=== PATIENT | female | born 1960 | race Caucasian/White ===

== ENCOUNTER → 2017-04-21 | Outpatient (CLI) | payer MEDICARE ==
[~2017-04-21] MED LIST: IOHEXOL 300 MG/ML 75 ML VIAL. IV ONE
--- NOTE | 2017-04-21 13:33 | RAD ---
CT angiography chest 04/21/2017 at 1029 hours Indication: Enlarged aorta Comparison: CT chest/abdomen/pelvis 04/19/2010 Technique: Multiple axial CT images of the chest were obtained after the administration of intravenous contrast. Coronal and sagittal reformats are provided. 75 mL is Omnipaque 300 administered intravenously. Findings: Vascular findings: The thoracic aorta at the sinus of Valsalva measures 3.5 cm. The thoracic aorta at the sinotubular junction measures 3.2 cm. Fastening aorta at the level of the proximal arch measures 4.0 cm. The descending aorta at the level of the main pulmonary artery measures 2.6 cm. Normal 3 vessel branching pattern of the brachiocephalic vessels. There is atherosclerotic calcification at the origin of the left subclavian which results in mild stenosis. Nonvascular findings: Thyroid gland is normal. Heart is normal in size. No pericardial effusions. No enlarged lymph nodes in the axillary, mediastinal or hilar regions. Lungs are clear. No suspicious pulmonary nodules. No infiltrates. No pneumothorax. Visualized upper abdomen is normal. The suspicious osseous lesions are identified. 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 Findings are stable dating back to 04/19/2010. PQRS Compliance Statement: One or more of the following individualized dose reduction techniques were utilized for this examination: 1. Automated exposure control 2. Adjustment of the mA and/or kV according to patient size 3. Use of iterative reconstruction technique
== END | disposition home or self-care (01) ==
LOC: CT 09:23
PROVIDERS: ATTEND Family Medicine
DX: I15.1 Hypertension secondary to other renal disorders (principal); I16.0 Hypertensive urgency; I79.0 Aneurysm of aorta in diseases classified elsewhere; F41.9 Anxiety disorder, unspecified; F17.200 Nicotine dependence, unspecified, uncomplicated; I70.0 Atherosclerosis of aorta; I77.819 Aortic ectasia, unspecified site; I87.1 Compression of vein; R12 Heartburn; R05 Cough
CPT/HCPCS: 71275; Q9967

== ENCOUNTER 2017-05-09 22:53 | Inpatient (IN) | payer MEDICARE ==
[~2017-05-09] VITALS: Ht 165.1 cm; Wt 86.2 kg
[2017-05-10] VITALS (9 sets, daily range): BP systolic 104–183; BP diastolic 65–117
[2017-05-10] MEDS ORDERED: MVI, ADULT NO.4 WITH VIT K 10 ML, FOLIC ACID 1 MG, THIAMINE 100 MG in IV NORMAL SALINE ... IV SCH ×4 (00:45)
[2017-05-10 01:16] LABS: BASO # 0.1 x10^3/uL (0.0-0.2); BASO % 1 % (0-3); EOS # 0.1 x10^3/uL (0.0-0.7); EOS % 1 % (0-3); HEMATOCRIT 46.1 % (36.0-47.0); HEMOGLOBIN 15.8 g/dL (12.0-15.5); LYMPH # 3.4 x10^3/uL (1.0-4.8); LYMPH % 55 % (24-48); MEAN CORPUSCULAR HEMOGLOBIN 35 pg (25-35); MEAN CORPUSCULAR HGB CONC 34 g/dL (31-37); MEAN CORPUSCULAR VOLUME 102 fL (79-100); MONO # 0.6 x10^3/uL (0.0-1.1); MONO % 9 % (0-9); NEUT # 2.2 x10^3uL (1.8-7.7); NEUT % 34 % (31-73); PLATELET COUNT 143 x10^3/uL (140-400); RED CELL DISTRIBUTION WIDTH 14.1 % (11.5-14.5); WHITE BLOOD COUNT 6.3 x10^3/uL (4.0-11.0)
[2017-05-10] MEDS ORDERED: IV NORMAL SALINE 1,000ML 1,000 ML ONE (01:27)
[2017-05-10] MEDS ORDERED: THIAMINE 200 MG/2 ML VIAL. IV ONE (01:27)
[2017-05-10] MEDS ORDERED: FOLIC ACID 5 MG/ML SYRINGE for ER IV ONE (01:28)
[2017-05-10] MEDS ORDERED: MVI, ADULT NO.4 WITH VIT K 10 ML VIAL IV ONE (01:28)
[2017-05-10 01:36] LABS: BARBITURATES NEG (NEG); BENZODIAZEPINES NEG (NEG); CANNABINOIDS NEG (NEG); COCAINE NEG (NEG); METHADONE NEG (NEG); OPIATES NEG (NEG); PHENCYCLIDINE NEG (NEG)
[2017-05-10 01:45] LABS: BACTERIA,URINE 0 /HPF (0-FEW); BILIRUBIN,URINE NEG (NEG); CLARITY,URINE CLEAR; COLOR,URINE YELLOW; GLUCOSE,URINE NEG (NEG); NITRITE,URINE NEG (NEG); RBC,URINE 0 /HPF (0-2); SQUAMOUS EPITHELIAL CELL,UR FEW /LPF; UROBILINOGEN,URINE 0.2 mg/dL (0.2 mg/dL); WBC,URINE OCC /HPF (0-4)
[2017-05-10 01:52] LABS: AMPHETAMINE/METHAMPHETAMINE NEG (NEG)
[2017-05-10 02:21] LABS: ALBUMIN 3.8 g/dL (3.4-5.0); ALBUMIN/GLOBULIN RATIO 0.8 (1.0-1.7); CALCIUM 8.7 mg/dL (8.5-10.1); CREATININE 0.7 mg/dL (0.6-1.0); GFR 85.9; MAGNESIUM 1.9 mg/dL (1.8-2.4); POTASSIUM 3.5 mmol/L (3.5-5.1); TOTAL BILIRUBIN 1.4 mg/dL (0.2-1.0); TOTAL PROTEIN 8.5 g/dL (6.4-8.2)
[2017-05-10] MEDS ORDERED: ONDANSETRON PF 4 MG/2 ML VIAL. IV PRN (02:30)
[2017-05-10] MEDS ORDERED: HALOPERIDOL LACT 5 MG/ML VIAL. IM PRN (02:30)
[2017-05-10] MEDS ORDERED: diphenhydrAMINE 50 MG/ML VIAL IVP PRN (02:30)
[2017-05-10] MEDS ORDERED: LORazepam 2 MG/ML VIAL IV PRN (02:30)
[2017-05-10] MEDS: cloNIDine HCL 0.1 MG TABLET PO PRN ×4 (02:38→23:55)
--- NOTE | 2017-05-10 02:58 | PHYS DOC ---
Adult General Chief Complaint Chief Complaint: WITHDRAWL HPI HPI Patient is a 56 year old female who presents with complaint of high blood pressure. Patient states that she has history of daily alcohol use. Patient states that she drinks at least 1 pint of whiskey or 6 beers every day and has done so for several years. The patient follows with Dr. Parker for primary care. Patient states that she has not been feeling well over the past couple days. Patient states that she took her blood pressure earlier today and found to be "high." Patient called her primary doctor and informed him of how she was feeling. She also stated that she was wanting to stop drinking. She states he instructed her to come to the emergency department for evaluation as patient would likely need to be admitted to the hospital for treatment. Patient's blood pressure was found to be 160/110 here in the emergency department. Patient denies headaches but states that she has been having chest pains off and on as well as sore throat. Patient also states that she has an obsessive compulsive syndrome that is causing her to pick at wounds on her body. Patient states that there are 2 wounds on her left shoulder that she has been picking at and currently they will not heal. Review of Systems Review of Systems Constitutional: Denies fever or chills [] Eyes: Denies change in visual acuity, redness, or eye pain [] HENT: Denies nasal congestion or sore throat [] Respiratory: Denies cough or shortness of breath [] Cardiovascular: Intermittent chest pain [] GI: Denies abdominal pain, nausea, vomiting, bloody stools or diarrhea [] : Denies dysuria or hematuria [] Musculoskeletal: Denies back pain or joint pain [] Integument: Wounds on left shoulder [] Neurologic: Denies headache, focal weakness or sensory changes [] Current Medications Current Medications Current Medications Medications (Trade) Dose Ordered Sig/Jacques Start Time Stop Time Status Last Admin Dose Admin Folic Acid 5 mg STK-MED ONCE 05/10/17 01:28 05/10/17 01:29 DC Multivitamins/ Minerals (Infuvite Adult) 10 ml STK-MED ONCE 05/10/17 01:28 05/10/17 01:29 DC Multivitamins/ Minerals 10 ml/ Folic Acid 1 mg/ Thiamine HCl 100 mg/Sodium Chloride 1,011.2 ml @ 1,000 mls/ hr Q1H 05/10/17 00:45 05/10/17 01:39 DC 05/10/17 01:38 1,000 MLS/HR Sodium Chloride 1,000 ml @ As Directed STK-MED ONCE 05/10/17 01:27 05/10/17 01:28 DC Thiamine HCl 200 mg STK-MED ONCE 05/10/17 01:27 05/10/17 01:28 DC Allergies Allergies Allergies Coded Allergies Type Severity Reaction Last Updated Verified sulfur Allergy Severe 04/21/17 Yes Physical Exam Physical Exam Constitutional: Alert, afebrile, alcoholic halitosis present, anxious. [] HENT: Normocephalic, atraumatic, bilateral external ears normal, oropharynx moist, no oral exudates, nose normal. [] Eyes: PERRLA, EOMI, conjunctiva normal, no discharge. [] Neck: Normal range of motion, no tenderness, supple, no stridor. [] Cardiovascular:Heart rate regular rhythm, no murmur [] Lungs & Thorax: Bilateral breath sounds clear to auscultation [] Abdomen: Bowel sounds normal, soft, no tenderness, no masses, no pulsatile masses. [] Skin: Warm, dry, there are 2 wounds on the left shoulder both measuring approximately 1.5 cm with active oozing of clear exudate, no surrounding erythema. [] Back: No tenderness, no CVA tenderness. [] Extremities: No tenderness, no cyanosis, no clubbing, ROM intact, no edema. [] Neurologic: Alert and oriented X 3, normal motor function, normal sensory function, no focal deficits noted. [] Current Patient Data Vital Signs Vital Signs Date Time Temp Pulse Resp B/P (MAP) Pulse Ox O2 Delivery O2 Flow Rate FiO2 05/10/17 02:38 173/118 05/09/17 23:27 98.0 92 20 94 Room Air Lab Results Laboratory Tests Test 05/10/17 00:48 05/10/17 01:35 White Blood Count 6.3 x10^3/uL (4.0-11.0) Red Blood Count 4.50 x10^6/uL (3.50-5.40) Hemoglobin 15.8 g/dL (12.0-15.5) H Hematocrit 46.1 % (36.0-47.0) Mean Corpuscular Volume 102 fL (79-100) H Mean Corpuscular Hemoglobin 35 pg (25-35) Mean Corpuscular Hemoglobin Concent 34 g/dL (31-37) Red Cell Distribution Width 14.1 % (11.5-14.5) Platelet Count 143 x10^3/uL (140-400) Neutrophils (%) (Auto) 34 % (31-73) Lymphocytes (%) (Auto) 55 % (24-48) H Monocytes (%) (Auto) 9 % (0-9) Eosinophils (%) (Auto) 1 % (0-3) Basophils (%) (Auto) 1 % (0-3) Neutrophils # (Auto) 2.2 x10^3uL (1.8-7.7) Lymphocytes # (Auto) 3.4 x10^3/uL (1.0-4.8) Monocytes # (Auto) 0.6 x10^3/uL (0.0-1.1) Eosinophils # (Auto) 0.1 x10^3/uL (0.0-0.7) Basophils # (Auto) 0.1 x10^3/uL (0.0-0.2) Urine Collection Type Unknown Urine Color Yellow Urine Clarity Clear Urine pH 6.0 Urine Specific [place] <=1.005 Urine Protein Neg (NEG-TRACE) Urine Glucose (UA) Neg mg/dL (NEG) Urine Ketones (Stick) Trace mg/dL (NEG) Urine Blood Neg (NEG) Urine Nitrite Neg (NEG) Urine Bilirubin Neg (NEG) Urine Urobilinogen Dipstick 0.2 mg/dL (0.2 mg/dL) Urine Leukocyte Esterase Neg (NEG) Urine RBC 0 /HPF (0-2) Urine WBC Occ /HPF (0-4) Urine Squamous Epithelial Cells Few /LPF Urine Bacteria 0 /HPF (0-FEW) Urine Opiates Screen Neg (NEG) Urine Methadone Screen Neg (NEG) Urine Barbiturates Neg (NEG) Urine Phencyclidine Screen Neg (NEG) Urine Amphetamine/Methamphetamine Neg (NEG) Urine Benzodiazepines Screen Neg (NEG) Urine Cocaine Screen Neg (NEG) Urine Cannabinoids Screen Neg (NEG) Urine Ethyl Alcohol Pos (NEG) Sodium Level 140 mmol/L (136-145) Potassium Level 3.5 mmol/L (3.5-5.1) Chloride Level 100 mmol/L (98-107) Carbon Dioxide Level 25 mmol/L (21-32) Anion Gap 15 (6-14) H Blood Urea Nitrogen 3 mg/dL (7-20) L Creatinine 0.7 mg/dL (0.6-1.0) Estimated GFR (Cockcroft-Gault) 85.9 BUN/Creatinine Ratio 4 (6-20) L Glucose Level 78 mg/dL (70-99) Calcium Level 8.7 mg/dL (8.5-10.1) Magnesium Level 1.9 mg/dL (1.8-2.4) Total Bilirubin 1.4 mg/dL (0.2-1.0) H Aspartate Amino Transferase (AST) 227 U/L (15-37) H Alanine Aminotransferase (ALT) 85 U/L (14-59) H Alkaline Phosphatase 98 U/L (46-116) Total Protein 8.5 g/dL (6.4-8.2) H Albumin 3.8 g/dL (3.4-5.0) Albumin/Globulin Ratio 0.8 (1.0-1.7) L Lipase 136 U/L (73-393) Ethyl Alcohol Level 267 mg/dL (0-10) H EKG EKG Interpreted by me: Heart rate 86, sinus rhythm, normal intervals, T-wave inversions in the precordial leads consistent with left heart strain pattern, no acute ST elevations or depressions [] Radiology/Procedures Radiology/Procedures Not performed [] Course & Med Decision Making Course & Med Decision Making Pertinent Labs and Imaging studies reviewed. (See chart for details) Patient started on clonidine treatment in the emergency department. I contacted Dr. Parker who confirm that the patient contacted him stated that he would be agreeable to admit the patient for treatment of high blood pressure and treatment of alcohol dependence. Spoke with the patient regarding plan of care and she is in agreement. Patient admitted for further care. Dragon Disclaimer Dragon Disclaimer This chart was dictated in whole or in part using Voice Recognition software in a busy, high-work load, and often noisy Emergency Department environment. It may contain unintended and wholly unrecognized errors or omissions. Departure Departure: Impression: Primary Impression: Accelerated hypertension Additional Impression: Alcohol dependence Disposition: ADMITTED INPATIENT Admitting Physician: Maurice Parker Condition: STABLE Referrals: MAURICE PARKER MD (PCP) Problem Qualifiers Additional Impression: Alcohol dependence Substance use status: with intoxication Complication of substance-induced condition: uncomplicated Qualified Codes: F10.220 - Alcohol dependence with intoxication, uncomplicated TAO ROJAS MD May 10, 2017 02:58
[2017-05-10] MEDS ORDERED: CLON0.5T3 PO (02:59)
[2017-05-10] MEDS ORDERED: METO25TA4 PO (02:59)
[2017-05-10] MEDS ORDERED: OMEP20CA9 PO (02:59)
[2017-05-10] MEDS ORDERED: CLOM25CA2 PO (02:59)
[2017-05-10] MEDS ORDERED: CLON-276 PO (02:59)
[2017-05-10] MEDS: IV NORMAL SALINE 1,000ML 1,000 ML IV SCH ×3 (03:32→21:54)
[2017-05-10] MEDS: LORazepam 2 MG/ML VIAL IV PRN ×5 (03:32→18:43)
[2017-05-10] MEDS ORDERED: PNEUMOC CONJ VACC 23-VALENT 0.5 ML VIAL. VAX IM ONE ×2 (04:30→09:00)
--- NOTE | 2017-05-10 04:48 | EKG ---
[address] [address] Test Date: 2017-05-10 Test Time: 01:09:45 Pat Name: LAZARA ORTIZ Department: Room: 124 A Gender: F Cot Assembler: ROSIE : 1960 Requested By: TAO ROJAS Order Number: [id number] Reading MD: Israel Brar Measurements Intervals [place] Rate: 86 P: 28 MI: 140 QRS: 24 QRSD: 94 T: 25 QT: 414 QTc: 499 Interpretive Statements SINUS RHYTHM QRS(T) CONTOUR ABNORMALITY CONSIDER ANTEROLATERAL MYOCARDIAL DAMAGE T ABNORMALITY IN ANTERIOR LEADS PROLONGED QT Electronically Signed On 05-10-2017 8:12:49 CDT by Israel Brar
[2017-05-10] MEDS ORDERED: PNEUMOCOCCAL VAX SCREEN. MC PRN (05:00)
[2017-05-10] MEDS ORDERED: TRIA15OI TOP (05:26)
--- NOTE | 2017-05-10 05:39 | ACF ---
Admission Criteria Forms HYPERTENSION Clinical Indications for Admission to Inpatient Care ( Place "X" for any and all applicable criteria): Admission is indicated for 1 or more of the following(1)(2)(3)(4)(5)(6)(7)(8)(9) (10): [ ]I. Hypertensive emergency, with evidence of acute and progressing target organ disease as indicated by 1 or more of the following: [ ]a) Hypertensive encephalopathy (eg, confusion, altered mental status) [ ]b) Cerebral infarction [ ]c) Intracranial hemorrhage [ ]d) Myocardial ischemia or infarction [ ]e) Heart failure (eg. Pulmonary edema) [ ]f) Aortic dissection [ ]g) Increased creatinine (new) with reduction of more than 50% in estimated glomerular filtration rate from baseline [ ]h) Seizure [ ]i) Papilledema [ ]j) Retinal hemorrhage [ ]k) Microangiopathic hemolytic anemia [ ]l) Other significant finding secondary to hypertension [ ]II. Adrenergic or sympathomimetic crisis (eg, severe hypertension due to pheochromocytoma crisis, cocaine or amphetamine intoxication, or clonidine withdrawal) [ X]III. Severe hypertension (SBP greater than 180 mmHg or DBP greater than 110 mmHg or greater than the 95th percentile for age, gender, and height in pediatric patients) that cannot be controlled (eg, to SBP less than 160 mmHg and DBP less than 100 mmHg in adults) by treatment with oral medication in emergency department or observation care Extended stay beyond goal length of stay may be needed for(11)(12)(13): [ ]a) Persistent hypertensive encephalopathy [ ]b) Continuation of pulmonary edema [ ]c) Recurring or persistent severe hypertension [ ]d) Target organ damage (eg, angina, stroke, aortic dissection) The original [employer] content created by [employer] has been revised. The portions of the content which have been revised are identified through the use of italic text, and [employer] [facility] [email or web address] has neither reviewed nor approved the modified material. All other unmodified content is copyright [employer]. Please see references footnoted in the original [employer] edition 2014 Admission Criteria Met?: Yes KAREN SANON May 10, 2017 05:39
[2017-05-10] MEDS: PANTOPRAZOLE 40 MG TABLET. PO SCH (07:38)
[2017-05-10] MEDS: cloNIDine HCL 0.2 MG TABLET PO SCH ×3 (09:00→20:30)
[2017-05-10] MEDS: MVI, ADULT NO.4 WITH VIT K 10 ML, THIAMINE 100 MG, FOLIC ACID 1 MG in IV NORMAL SALINE ... IV SCH ×4 (09:31)
[2017-05-10] MEDS: METOPROLOL TART IMMED RELEASE 25 MG TABLET PO SCH ×2 (09:32→20:30)
[2017-05-10] MEDS: NICOTINE 21MG PATCH. TD SCH (09:32)
[2017-05-10] MEDS: TRIAMCINOLONE ACETONIDE 0.1% TOPICAL OINTMENT 15GM TUBE. TP SCH ×2 (09:33→16:00)
[2017-05-10] MEDS ORDERED: MAGNESIUM HYDROXIDE 2,400 MG/30 ML ORAL.SUSP. PO PRN (12:45)
[2017-05-10] MEDS ORDERED: SENNOSIDES/DOCUSATE 8.6/50MG TABLET. PO PRN (12:45)
[2017-05-10] MEDS: LORazepam 0.5 MG TABLET PO SCH ×2 (14:09→20:34)
[2017-05-10] MEDS ORDERED: HYDROcodone/APAP 5/325MG 1 TAB TABLET PO PRN (16:15)
[2017-05-10] MEDS: HYDROcodone/APAP 5/325MG 1 TAB TABLET PO PRN ×2 (16:21→21:54)
[2017-05-10] MEDS: MAALOX:LIDO:APAP 6:2:1 ORAL SUSPENSION 180 ML BOTTLE. PO PRN (18:55)
--- NOTE | 2017-05-10 20:42 | HP ---
ADMIT DATE: 05/10/2017 HISTORY OF PRESENT ILLNESS: A 56-year-old female with history of alcoholism, came in, said that she has been drinking heavily, been having some DTs, marked tremor. She states she drinks alcohol at least a pint a day, whiskey or 6 beers every day, has done this for several years. The patient notes that she has not been feeling well over the past couple of days. Blood pressures have been somewhat elevated and feeling sick to her stomach with abdominal discomfort. The patient denies any headaches, chest pain, does have some chest discomfort off and on as well as a sore throat. PAST MEDICAL HISTORY: Includes that of blood clot in the brain, appendectomy, shoulder surgery, ankle surgery, gastroesophageal reflux, tubal ligation, hypertension, obsessive compulsive disorder, anxiety, self-mutilation, picks at the skin, alcohol abuse, tobacco abuse. ALLERGIES: SULFA. FAMILY HISTORY: Positive for alcoholism and obsessive compulsive disorders. SOCIAL HISTORY: As noted prior drinks a pint of hard liquor a day along with smoking about a half pack to a pack of cigarettes a day and multiple beers a day. Denies hard drug use. REVIEW OF SYSTEMS: As noted has a diffuse headache, denies visual changes, blurred vision, double vision. Denies any melena, hematochezia, hematemesis. Denies any chest pain per se, some chest tightness from time to time, abdominal discomfort in the right upper quadrant. Denies any melena, hematochezia, hematemesis and neurologically intact. PHYSICAL EXAMINATION: GENERAL: This is a pleasant white female looking somewhat inebriated. VITAL SIGNS: The patient's blood pressure 120/70, respiratory rate 16, pulse 100, afebrile. HEENT: The patient's head was atraumatic, normocephalic. Eyes: PERRLA without jaundice. Mouth and throat were normal. NECK: Supple, without JVD, carotid bruits. No thyromegaly. LUNGS: Diminished throughout, poor movement of air. CARDIOVASCULAR: Regular sinus rhythm, S1, S2, without murmur, rub, thrill, or extra heart sounds. ABDOMEN: Soft, diffuse tenderness in the right upper quadrant area bloated, distended, as noted some elevation or extension of the liver edge approximately 2 fingerbreadths below the right costal margin. The patient had positive bowel sounds. EXTREMITIES: No clubbing, cyanosis or edema. NEUROLOGIC: The patient was alert and oriented. Has good insight to her situation as far as her alcoholism and drug abuse potential. CT scan was unremarkable. OTHER LABORATORIES: White count was unremarkable. Elevated liver enzymes, GGTP over 1000. AST 227, ALT 85. Alcohol level 267. UA unremarkable. Hemoglobin 15 and hematocrit 46. IMPRESSION: Alcoholism, delirium tremens, abnormal liver enzymes elevation, alcoholic cirrhosis of the liver, manic depressive bipolar disease, tobaccoism or tobacco abuse. PLAN: The patient will be admitted, placed on CIWA protocol, make further evaluation on her, get psychiatric evaluation and monitor for any further exacerbations of her DTs and make further assessment at that time. KASSIDY MUKHERJEE MD DR: FANNIE/chely JOB#: [id number] / [id number]
--- NOTE | 2017-05-10 22:48 | PDOC ---
Exam Sylvain Demential Exam: Sylvain Note: Please also refer to the separate dictated note~for this date of service dictated separately.~Patient seen individually. Discussed the patient with Nursing staff reviewed the chart.~Reviewed interim history and current functioning. Reviewed vital signs,~Labs/ Radiology~and current medications noted below. Continue current treatment with the changes noted in the dictated addendum note Assessment: Vital Signs: Vital Signs Date Time Temp Pulse Resp B/P (MAP) Pulse Ox O2 Delivery O2 Flow Rate FiO2 05/10/17 22:46 82 183/117 05/10/17 21:54 20 Room Air 05/10/17 18:57 98.2 96 I&O Intake and Output 05/10/17 07:00 Intake Total 240 ml Balance 240 ml Intake Oral 240 ml Labs: Laboratory Tests Test 05/10/17 00:48 05/10/17 01:35 White Blood Count 6.3 x10^3/uL (4.0-11.0) Red Blood Count 4.50 x10^6/uL (3.50-5.40) Hemoglobin 15.8 g/dL (12.0-15.5) H Hematocrit 46.1 % (36.0-47.0) Mean Corpuscular Volume 102 fL (79-100) H Mean Corpuscular Hemoglobin 35 pg (25-35) Mean Corpuscular Hemoglobin Concent 34 g/dL (31-37) Red Cell Distribution Width 14.1 % (11.5-14.5) Platelet Count 143 x10^3/uL (140-400) Neutrophils (%) (Auto) 34 % (31-73) Lymphocytes (%) (Auto) 55 % (24-48) H Monocytes (%) (Auto) 9 % (0-9) Eosinophils (%) (Auto) 1 % (0-3) Basophils (%) (Auto) 1 % (0-3) Neutrophils # (Auto) 2.2 x10^3uL (1.8-7.7) Lymphocytes # (Auto) 3.4 x10^3/uL (1.0-4.8) Monocytes # (Auto) 0.6 x10^3/uL (0.0-1.1) Eosinophils # (Auto) 0.1 x10^3/uL (0.0-0.7) Basophils # (Auto) 0.1 x10^3/uL (0.0-0.2) Urine Collection Type Unknown Urine Color Yellow Urine Clarity Clear Urine pH 6.0 Urine Specific [place] <=1.005 Urine Protein Neg (NEG-TRACE) Urine Glucose (UA) Neg mg/dL (NEG) Urine Ketones (Stick) Trace mg/dL (NEG) Urine Blood Neg (NEG) Urine Nitrite Neg (NEG) Urine Bilirubin Neg (NEG) Urine Urobilinogen Dipstick 0.2 mg/dL (0.2 mg/dL) Urine Leukocyte Esterase Neg (NEG) Urine RBC 0 /HPF (0-2) Urine WBC Occ /HPF (0-4) Urine Squamous Epithelial Cells Few /LPF Urine Bacteria 0 /HPF (0-FEW) Urine Opiates Screen Neg (NEG) Urine Methadone Screen Neg (NEG) Urine Barbiturates Neg (NEG) Urine Phencyclidine Screen Neg (NEG) Urine Amphetamine/Methamphetamine Neg (NEG) Urine Benzodiazepines Screen Neg (NEG) Urine Cocaine Screen Neg (NEG) Urine Cannabinoids Screen Neg (NEG) Urine Ethyl Alcohol Pos (NEG) Sodium Level 140 mmol/L (136-145) Potassium Level 3.5 mmol/L (3.5-5.1) Chloride Level 100 mmol/L (98-107) Carbon Dioxide Level 25 mmol/L (21-32) Anion Gap 15 (6-14) H Blood Urea Nitrogen 3 mg/dL (7-20) L Creatinine 0.7 mg/dL (0.6-1.0) Estimated GFR (Cockcroft-Gault) 85.9 BUN/Creatinine Ratio 4 (6-20) L Glucose Level 78 mg/dL (70-99) Calcium Level 8.7 mg/dL (8.5-10.1) Magnesium Level 1.9 mg/dL (1.8-2.4) Total Bilirubin 1.4 mg/dL (0.2-1.0) H Direct Bilirubin 1.0 mg/dL (0.0-0.2) H Gamma Glutamyl Transpeptidase 1001 U/L (5-55) H Aspartate Amino Transferase (AST) 227 U/L (15-37) H Alanine Aminotransferase (ALT) 85 U/L (14-59) H Alkaline Phosphatase 98 U/L (46-116) Total Protein 8.5 g/dL (6.4-8.2) H Albumin 3.8 g/dL (3.4-5.0) Albumin/Globulin Ratio 0.8 (1.0-1.7) L Lipase 136 U/L (73-393) Ethyl Alcohol Level 267 mg/dL (0-10) H Current Medications: Meds: Current Medications Multivitamins/ Minerals 10 ml/ Folic Acid 1 mg/ Thiamine HCl 100 mg/Sodium Chloride 1,011.2 ml @ 1,000 mls/ hr Q1H IV Last administered on 05/10/17 01: 38; Start 05/10/17 at 00:45; Stop 05/10/17 at 01:39; Status DC Sodium Chloride 1,000 ml @ As Directed STK-MED ONCE .ROUTE ; Start 05/10/17 at 01:27; Stop 05/10/17 at 01:28; Status DC Thiamine HCl 200 mg STK-MED ONCE IV ; Start 05/10/17 at 01:27; Stop 05/10/17 at 01:28; Status DC Multivitamins/ Minerals (Infuvite Adult) 10 ml STK-MED ONCE IV ; Start 05/10/17 at 01:28; Stop 05/10/17 at 01:29; Status DC Folic Acid 5 mg STK-MED ONCE IV ; Start 05/10/17 at 01:28; Stop 05/10/17 at 01: 29; Status DC Ondansetron HCl (Zofran) 4 mg PRN Q4HRS PRN IV NAUSEA/VOMITING; Start 05/10/17 at 02:30; Stop 05/11/17 at 02:29 Sodium Chloride 1,000 ml @ 100 mls/hr Q10H IV Last administered on 05/10/17 20:29; Start 05/10/17 at 02:30; Stop 05/11/17 at 02:29 Multivitamins/ Minerals 10 ml/ Thiamine HCl 100 mg/Folic Acid 1 mg/Sodium Chloride 1,011.2 ml @ 100 mls/ hr DAILY IV Last administered on 05/10/17 09: 31; Start 05/10/17 at 09:00; Stop 05/15/17 at 08:59 Lorazepam (Ativan) 2 mg PRN Q1HR PRN IV For CIWA 8-14 Last administered on 05/10 18:43; Start 05/10/17 at 02:30 Lorazepam (Ativan) 4 mg PRN Q1HR PRN IV For CIWA 15 or greater; Start 05/10/17 at 02:30 Haloperidol Lactate (Haldol) 5 mg PRN Q4HRS PRN IM Hallucinatns,Confusn, Delirium; Start 05/10/17 at 02:30 Diphenhydramine HCl (Benadryl) 25 mg PRN Q15MIN PRN IVP EPS symptoms 2'Haldol admin; Start 05/10/17 at 02:30 Clonidine HCl (Catapres) 0.1 mg PRN Q1HR PRN PO SBP>180 OR DBP>100, MR X 3 Last administered on 05/10/17 22:46; Start 05/10/17 at 02:30 Multi-Ingredient Mouthwash/Gargle (Velvet Glove Oral Susp) 10 ml PRN Q4HRS PRN PO MOUTH PAIN Last administered on 05/10/17 18:55; Start 05/10/17 at 03:00 Pneumococcal Polyvalent Vaccine (Pneumovax 23) 0.5 ml ONCE ONCE VAX IM ; Start 05/10/17 at 04:30; Stop 05/10/17 at 04:31; Status Cancel Clonidine HCl (Catapres) 0.2 mg BID PO Last administered on 05/10/17 20:30; Start 05/10/17 at 09:00 Metoprolol Tartrate (Lopressor) 25 mg BID PO Last administered on 05/10/17 20: 30; Start 05/10/17 at 09:00 Pantoprazole Sodium (Protonix) 40 mg DAILYAC PO Last administered on 05/10/17 07:38; Start 05/10/17 at 07:30 Pneumococcal Polyvalent Vaccine (Do NOT chart on this entry -- for MONITORING) 1 each PRN 1X PRN MC SEE COMMENTS; Start 05/10/17 at 05:00; Status Cancel Pneumococcal Polyvalent Vaccine (Pneumovax 23) 0.5 ml ONCE ONCE VAX IM Last administered on 05/10/17 18:26; Start 05/10/17 at 09:00; Stop 05/10/17 at 09:01 ; Status DC Triamcinolone Acetonide (Kenalog) 1 cece BID94 TP Last administered on 09:33; Start 05/10/17 at 09:00 Nicotine (Nicoderm Cq 21mg) 1 patch DAILY TD Last administered on 05/10/17 09: 32; Start 05/10/17 at 09:00 Lorazepam (Ativan) 0.5 mg TID PO Last administered on 05/10/17 20:34; Start at 14:00 Senna/Docusate Sodium (Senna Plus) 2 tab PRN BID PRN PO CONSTIPATION Last administered on 05/10/17 13:06; Start 05/10/17 at 12:45 Magnesium Hydroxide (Milk Of Magnesia) 2,400 mg BID PRN PO CONSTIPATION; Start 05/10/17 at 12:45 Acetaminophen/ Hydrocodone Bitart (Lortab 5/325) 2 tab PRN Q6HRS PRN PO SEVERE PAIN; Start 05/10/17 at 16:15 Acetaminophen/ Hydrocodone Bitart (Lortab 5/325) 1 tab PRN Q6HRS PRN PO PAIN Last administered on 05/10/17 21:54; Start 05/10/17 at 16:15 Active Scripts Active Reported Triamcinolone Acetonide 15 Gm Oint...g. 1 Applic TOP BID94 Metoprolol Tartrate 25 Mg Tablet 25 Mg PO BID Omeprazole 20 Mg Capsule.dr 20 Mg PO DAILY Clonidine Hcl 0.2 Mg Tablet 0.2 Mg PO BID Clonazepam 0.5 Mg Tablet 0.5 Mg PO TID PRN Clomipramine Hcl 25 Mg Capsule 25 Mg PO DAILY Diagnosis: Problems: (1) Major depressive disorder, recurrent episode (2) Anxiety disorder (3) Alcohol dependence FIDE HU MD May 10, 2017 22:48
--- NOTE | 2017-05-11 01:31 | CONS ---
DATE OF CONSULTATION: 05/10/2017 IDENTIFYING DATA: The patient is a 56-year-old female seen in bed 124, 1 [facility] for a psychiatric consult requested by Dr. Parker on account of the patient's anxiety and depression within the context of her alcohol abuse and alcohol withdrawal for which she was admitted. I have been asked to monitor the alcohol withdrawal and evaluate the patient with respect to her depression and further treatment recommendations. The patient was seen individually evening of 05/10/2017. Discussed with nursing staff and reviewed the chart. CHIEF COMPLAINT: "I've been drinking heavy. It is mostly beer and hard liquor sometimes." HISTORY OF PRESENT ILLNESS: The patient has a history of alcohol abuse. She states she has been drinking heavily. She has had marked tremors, mental status changes, and possible DTs. She drinks at least pint a day of whiskey or 6 beers every day and has done this for several years. Over the past few days, she has had an elevated blood pressure of feeling sick to her stomach, abdominal discomfort, and discomfort on swallowing. No psychotic symptoms, suicidal or homicidal ideation. In the past, she states she has had a DUI, but that was in the distant past about 15 years ago. She denies any drug usage. She does admit to being depressed, having insomnia, and states she did well on trazodone in the past and wishes she could start back on this. No suicidal or homicidal ideation. No clear history of bipolar disorder. PAST PSYCHIATRIC HISTORY: As above. MEDICAL HISTORY: Cerebral embolism, history of appendectomy, shoulder surgery, ankle surgery, GERD, tubal ligation, hypertension, history of OCD, anxiety, self-mutilation, and she has marked excoriations on her neck and back; upper way she can reach it with her hands. She picks at her skin and also has history of tobacco abuse. DRUG ALLERGIES: SULFA. FAMILY HISTORY: Positive for alcoholism and anxiety. SOCIAL HISTORY: Alcohol abuse history noted above. Smokes about half a pack to a pack of cigarettes a day. Denies hard drug usage. She lives at home with her ex- and is on disability status post neurological problems. CURRENT PSYCHOTROPICS: She is on IV fluids and detox protocol with Ativan. She is a full code. MENTAL STATUS EXAM: The patient was seen individually evening of 05/10/2017. She is reoriented to herself and situation, somewhat distractable. Speech is coherent, anxious, somewhat ruminative, and depressed. No clear psychotic symptoms, suicidal or homicidal ideation at this time. Attention span short and language function intact. LABORATORY DATA: Reviewed. IMPRESSION: Major depressive disorder, recurrent; history of alcohol abuse, dependence withdrawal, anxiety disorder, unspecified; and rule out obsessive compulsive disorder. Rest of diagnoses as above including alcohol withdrawal. PLAN: Continue alcohol detox protocol and supplements. Restart the patient on trazodone since she states she did very well on this in the past. We will start trazodone 50 mg at bedtime. I have recommended she follow up outpatient at the [facility] post-discharge and she agrees to do this. Dr. Parker, thank you for the opportunity to participate in your patient's care. We will follow with you. MAN Ann HU MD DR: MATTIE/chely JOB#: [id number] / [id number]
[2017-05-11 01:35] VITALS: BP 178/120
[2017-05-11] MEDS: LORazepam 2 MG/ML VIAL IV PRN ×2 (01:47→05:06)
[2017-05-11] MEDS: cloNIDine HCL 0.1 MG TABLET PO PRN (01:47)
[2017-05-11 02:44] VITALS: BP 175/105
[2017-05-11] MEDS ORDERED: CARVEDILOL 6.25 MG TABLET PO PRN (03:00)
[2017-05-11 03:35] VITALS: BP 171/105
[2017-05-11] MEDS: IV NORMAL SALINE 1,000ML 1,000 ML IV SCH (05:06)
[2017-05-11] MEDS: HYDROcodone/APAP 5/325MG 1 TAB TABLET PO PRN (05:07)
[2017-05-11 05:15] VITALS: BP 154/100
[2017-05-11 05:58] LABS: BASO % 1 % (0-3); EOS % 1 % (0-3); HEMOGLOBIN 12.8 g/dL (12.0-15.5); LYMPH # 1.3 x10^3/uL (1.0-4.8); LYMPH % 38 % (24-48); MEAN CORPUSCULAR HEMOGLOBIN 35 pg (25-35); MEAN CORPUSCULAR HGB CONC 34 g/dL (31-37); MEAN CORPUSCULAR VOLUME 103 fL (79-100); MONO # 0.4 x10^3/uL (0.0-1.1); MONO % 12 % (0-9); NEUT # 1.7 x10^3uL (1.8-7.7); NEUT % 49 % (31-73); PLATELET COUNT 74 x10^3/uL (140-400); RED CELL DISTRIBUTION WIDTH 14.4 % (11.5-14.5); WHITE BLOOD COUNT 3.5 x10^3/uL (4.0-11.0)
[2017-05-11 06:02] LABS: CALCIUM 8.4 mg/dL (8.5-10.1); CREATININE 0.6 mg/dL (0.6-1.0); GFR 102.7; POTASSIUM 3.6 mmol/L (3.5-5.1)
[2017-05-11] MEDS: MAALOX:LIDO:APAP 6:2:1 ORAL SUSPENSION 180 ML BOTTLE. PO PRN ×2 (06:08)
[2017-05-11] MEDS: LORazepam 0.5 MG TABLET PO SCH (07:26)
[2017-05-11] MEDS: PANTOPRAZOLE 40 MG TABLET. PO SCH (07:26)
[2017-05-11] MEDS: NICOTINE 21MG PATCH. TD SCH (07:27)
[2017-05-11] MEDS: METOPROLOL TART IMMED RELEASE 25 MG TABLET PO SCH (07:31)
[2017-05-11] MEDS: TRIAMCINOLONE ACETONIDE 0.1% TOPICAL OINTMENT 15GM TUBE. TP SCH (07:38)
[2017-05-11 07:40] LABS: DIRECT BILIRUBIN 1.2 mg/dL (0.0-0.2); TOTAL BILIRUBIN 2.2 mg/dL (0.2-1.0)
[2017-05-11 08:50] VITALS: BP 155/117
[2017-05-11] MEDS: MVI, ADULT NO.4 WITH VIT K 10 ML, THIAMINE 100 MG, FOLIC ACID 1 MG in IV NORMAL SALINE ... IV SCH ×4 (09:00)
[2017-05-11] MEDS ORDERED: TRAZ50TA15 PO (09:38)
[2017-05-11] MEDS ORDERED: CARV25TA PO (09:38)
[2017-05-11] MEDS ORDERED: METO25TA4 PO (09:38)
[2017-05-11] MEDS ORDERED: LORA0.5T96 PO (09:38)
[2017-05-11] MEDS: cloNIDine HCL 0.2 MG TABLET PO SCH (09:41)
--- NOTE | 2017-05-11 09:53 | PDOC3 ---
Discharge Summary Visit Information Date of Discharge: May 11, 2017 Admitting Diagnosis Comments Chronic alcohol abuse Elevated liver enzymes Cirrhosis of the liver secondary to alcohol abuse Severe depression Final Diagnosis Problems Medical Problems: (1) Accelerated hypertension Status: Acute (2) Alcohol dependence Status: Acute Severe depression Elevated liver enzymes History of cerebral embolism History of appendectomy shoulder surgery ankle surgery Problems: Brief Hospital Course Allergies Allergies Coded Allergies Type Severity Reaction Last Updated Verified sulfur Allergy Severe 04/21/17 Yes Vital Signs Vital Signs Date Time Temp Pulse Resp B/P (MAP) Pulse Ox O2 Delivery O2 Flow Rate FiO2 05/11/17 09:41 66 155/117 05/11/17 08:00 Room Air 05/11/17 06:24 18 05/11/17 05:15 98.4 96 Lab Results Laboratory Tests Test 05/10/17 00:48 05/10/17 01:35 05/11/17 05:44 White Blood Count 6.3 x10^3/uL (4.0-11.0) 3.5 x10^3/uL (4.0-11.0) Red Blood Count 4.50 x10^6/uL (3.50-5.40) 3.70 x10^6/uL (3.50-5.40) Hemoglobin 15.8 g/dL (12.0-15.5) 12.8 g/dL (12.0-15.5) Hematocrit 46.1 % (36.0-47.0) 38.0 % (36.0-47.0) Mean Corpuscular Volume 102 fL (79-100) 103 fL (79-100) Mean Corpuscular Hemoglobin 35 pg (25-35) 35 pg (25-35) Mean Corpuscular Hemoglobin Concent 34 g/dL (31-37) 34 g/dL (31-37) Red Cell Distribution Width 14.1 % (11.5-14.5) 14.4 % (11.5-14.5) Platelet Count 143 x10^3/uL (140-400) 74 x10^3/uL (140-400) Neutrophils (%) (Auto) 34 % (31-73) 49 % (31-73) Lymphocytes (%) (Auto) 55 % (24-48) 38 % (24-48) Monocytes (%) (Auto) 9 % (0-9) 12 % (0-9) Eosinophils (%) (Auto) 1 % (0-3) 1 % (0-3) Basophils (%) (Auto) 1 % (0-3) 1 % (0-3) Neutrophils # (Auto) 2.2 x10^3uL (1.8-7.7) 1.7 x10^3uL (1.8-7.7) Lymphocytes # (Auto) 3.4 x10^3/uL (1.0-4.8) 1.3 x10^3/uL (1.0-4.8) Monocytes # (Auto) 0.6 x10^3/uL (0.0-1.1) 0.4 x10^3/uL (0.0-1.1) Eosinophils # (Auto) 0.1 x10^3/uL (0.0-0.7) 0.0 x10^3/uL (0.0-0.7) Basophils # (Auto) 0.1 x10^3/uL (0.0-0.2) 0.0 x10^3/uL (0.0-0.2) Urine Collection Type Unknown Urine Color Yellow Urine Clarity Clear Urine pH 6.0 Urine Specific Goodman <=1.005 Urine Protein Neg (NEG-TRACE) Urine Glucose (UA) Neg mg/dL (NEG) Urine Ketones (Stick) Trace mg/dL (NEG) Urine Blood Neg (NEG) Urine Nitrite Neg (NEG) Urine Bilirubin Neg (NEG) Urine Urobilinogen Dipstick 0.2 mg/dL (0.2 mg/dL) Urine Leukocyte Esterase Neg (NEG) Urine RBC 0 /HPF (0-2) Urine WBC Occ /HPF (0-4) Urine Squamous Epithelial Cells Few /LPF Urine Bacteria 0 /HPF (0-FEW) Urine Opiates Screen Neg (NEG) Urine Methadone Screen Neg (NEG) Urine Barbiturates Neg (NEG) Urine Phencyclidine Screen Neg (NEG) Urine Amphetamine/Methamphetamine Neg (NEG) Urine Benzodiazepines Screen Neg (NEG) Urine Cocaine Screen Neg (NEG) Urine Cannabinoids Screen Neg (NEG) Urine Ethyl Alcohol Pos (NEG) Sodium Level 140 mmol/L (136-145) 136 mmol/L (136-145) Potassium Level 3.5 mmol/L (3.5-5.1) 3.6 mmol/L (3.5-5.1) Chloride Level 100 mmol/L (98-107) 102 mmol/L (98-107) Carbon Dioxide Level 25 mmol/L (21-32) 27 mmol/L (21-32) Anion Gap 15 (6-14) 7 (6-14) Blood Urea Nitrogen 3 mg/dL (7-20) 4 mg/dL (7-20) Creatinine 0.7 mg/dL (0.6-1.0) 0.6 mg/dL (0.6-1.0) Estimated GFR (Cockcroft-Gault) 85.9 102.7 BUN/Creatinine Ratio 4 (6-20) Glucose Level 78 mg/dL (70-99) 137 mg/dL (70-99) Calcium Level 8.7 mg/dL (8.5-10.1) 8.4 mg/dL (8.5-10.1) Magnesium Level 1.9 mg/dL (1.8-2.4) Total Bilirubin 1.4 mg/dL (0.2-1.0) 2.2 mg/dL (0.2-1.0) Direct Bilirubin 1.0 mg/dL (0.0-0.2) 1.2 mg/dL (0.0-0.2) Gamma Glutamyl Transpeptidase 1001 U/L (5-55) 978 U/L (5-55) Aspartate Amino Transf (AST/SGOT) 227 U/L (15-37) 234 U/L (15-37) Alanine Aminotransferase (ALT/SGPT) 85 U/L (14-59) 72 U/L (14-59) Alkaline Phosphatase 98 U/L (46-116) Total Protein 8.5 g/dL (6.4-8.2) Albumin 3.8 g/dL (3.4-5.0) Albumin/Globulin Ratio 0.8 (1.0-1.7) Lipase 136 U/L (73-393) Ethyl Alcohol Level 267 mg/dL (0-10) Brief Hospital Course Ms. Jiang is a 56 old [se female x] who presented with [admitted with alcohol abuse patient had severe anxiety depression also self-mutilation and scratching the skin of her back the patient was tired of drinking heavily came in with an alcohol level over 260 she also was noted in the hospital have elevated blood pressure problems and we try to control that as well with the adjustment of her medications. Patient was seen by Dr. perez psychiatrist for further evaluation he meet timely suggestions as always and recommended [facility]. The patient at time of discharge. As noted blood pressure approximately 150/110 pulse 66 afebrile Her liver enzymes showed a GGTP of 980 AST 2:30 ALT the 70 to all of these are elevated patient's also total bilirubin was elevated at 2.2 Patient was advised about her alcoholism. The [facility] to continue abstinence which was imperative to her health Needs to monitor liver enzymes and going into liver failure patient said she understood Patient also try to stop smoking but believes it 31 thing at a time will be significant advancement patient also has significant depression as noted by Dr. perez he recommended her on trazodone and will continue on such ] Discharge Information Condition at Discharge: Improved Follow Up: Weeks Disposition/Orders: D/C to Another Facility Dischare Medications Current Medications Multivitamins/ Minerals 10 ml/ Folic Acid 1 mg/ Thiamine HCl 100 mg/Sodium Chloride 1,011.2 ml @ 1,000 mls/ hr Q1H IV Last administered on 05/10/17t 01: 38; Admin Dose 1,000 MLS/HR; Start 05/10/17 at 00:45; Stop 05/10/17 at 01:39; Status DC Sodium Chloride 1,000 ml @ As Directed STK-MED ONCE .ROUTE ; Start 05/10/17 at 01:27; Stop 05/10/17 at 01:28; Status DC Thiamine HCl 200 mg STK-MED ONCE IV ; Start 05/10/17 at 01:27; Stop 05/10/17 at 01:28; Status DC Multivitamins/ Minerals (Infuvite Adult) 10 ml STK-MED ONCE IV ; Start 05/10/17 at 01:28; Stop 05/10/17 at 01:29; Status DC Folic Acid 5 mg STK-MED ONCE IV ; Start 05/10/17 at 01:28; Stop 05/10/17 at 01: 29; Status DC Ondansetron HCl (Zofran) 4 mg PRN Q4HRS PRN IV NAUSEA/VOMITING; Start 05/10/17 at 02:30; Stop 05/11/17 at 02:29; Status DC Sodium Chloride 1,000 ml @ 100 mls/hr Q10H IV Last administered on 05/11/17 05 :06; Admin Dose 100 MLS/HR; Start 05/10/17 at 02:30; Stop 05/11/17 at 02:29; Status DC Multivitamins/ Minerals 10 ml/ Thiamine HCl 100 mg/Folic Acid 1 mg/Sodium Chloride 1,011.2 ml @ 100 mls/ hr DAILY IV Last administered on 05/10/17 09: 31; Admin Dose 100 MLS/HR; Start 05/10/17 at 09:00; Stop 05/15/17 at 08:59 Lorazepam (Ativan) 2 mg PRN Q1HR PRN IV For CIWA 8-14 Last administered on 05:06; Admin Dose 2 MG; Start 05/10/17 at 02:30 Lorazepam (Ativan) 4 mg PRN Q1HR PRN IV For CIWA 15 or greater; Start 05/10/17 at 02:30 Haloperidol Lactate (Haldol) 5 mg PRN Q4HRS PRN IM Hallucinatns,Confusn, Delirium; Start 05/10/17 at 02:30 Diphenhydramine HCl (Benadryl) 25 mg PRN Q15MIN PRN IVP EPS symptoms 2'Haldol admin; Start 05/10/17 at 02:30 Clonidine HCl (Catapres) 0.1 mg PRN Q1HR PRN PO SBP>180 OR DBP>100, MR X 3 Last administered on 05/11/17 01:47; Admin Dose 0.1 MG; Start 05/10/17 at 02:30 Multi-Ingredient Mouthwash/Gargle (Velvet Glove Oral Susp) 10 ml PRN Q4HRS PRN PO MOUTH PAIN Last administered on 05/11/17 06:08; Admin Dose 10 ML; Start 05/10 at 03:00 Pneumococcal Polyvalent Vaccine (Pneumovax 23) 0.5 ml ONCE ONCE VAX IM ; Start 05/10/17 at 04:30; Stop 05/10/17 at 04:31; Status Cancel Clonidine HCl (Catapres) 0.2 mg BID PO Last administered on 05/11/17 09:41; Admin Dose 0.2 MG; Start 05/10/17 at 09:00 Metoprolol Tartrate (Lopressor) 25 mg BID PO Last administered on 05/11/17 07: 31; Admin Dose 25 MG; Start 05/10/17 at 09:00 Pantoprazole Sodium (Protonix) 40 mg DAILYAC PO Last administered on 05/11/17 07:26; Admin Dose 40 MG; Start 05/10/17 at 07:30 Pneumococcal Polyvalent Vaccine (Do NOT chart on this entry -- for MONITORING) 1 each PRN 1X PRN MC SEE COMMENTS; Start 05/10/17 at 05:00; Status Cancel Pneumococcal Polyvalent Vaccine (Pneumovax 23) 0.5 ml ONCE ONCE VAX IM Last administered on 05/10/17 18:26; Admin Dose 0.5 ML; Start 05/10/17 at 09:00; Stop 05/10/17 at 09:01; Status DC Triamcinolone Acetonide (Kenalog) 1 cece [id number] TP Last administered on 09:33; Admin Dose 1 CECE; Start 05/10/17 at 09:00 Nicotine (Nicoderm Cq 21mg) 1 patch DAILY TD Last administered on 05/11/17 07: 27; Admin Dose 1 PATCH; Start 05/10/17 at 09:00 Lorazepam (Ativan) 0.5 mg TID PO Last administered on 05/11/17 07:26; Admin Dose 0.5 MG; Start 05/10/17 at 14:00 Senna/Docusate Sodium (Senna Plus) 2 tab PRN BID PRN PO CONSTIPATION Last administered on 05/10/17 13:06; Admin Dose 2 TAB; Start 05/10/17 at 12:45 Magnesium Hydroxide (Milk Of Magnesia) 2,400 mg BID PRN PO CONSTIPATION; Start 05/10/17 at 12:45 Acetaminophen/ Hydrocodone Bitart (Lortab 5/325) 2 tab PRN Q6HRS PRN PO SEVERE PAIN; Start 05/10/17 at 16:15 Acetaminophen/ Hydrocodone Bitart (Lortab 5/325) 1 tab PRN Q6HRS PRN PO PAIN Last administered on 05/11/17 05:07; Admin Dose 1 TAB; Start 05/10/17 at 16:15 Trazodone HCl (Desyrel) 50 mg QHS PO ; Start 05/11/17 at 21:00 Carvedilol (Coreg) 6.25 mg PRN Q6HRS PRN PO HYPERTENSION, SEE COMMENTS Last administered on 05/11/17t 02:52; Admin Dose 6.25 MG; Start 05/11/17 at 03:00 Active Scripts Active Coreg (Carvedilol) 25 Mg Tablet 1 Tab PO BID Trazodone Hcl 50 Mg Tablet 100 Mg PO QHS Ativan (Lorazepam) 0.5 Mg Tablet 0.5 Mg PO TID 60 Days Metoprolol Tartrate 25 Mg Tablet 50 Mg PO BID Reported Triamcinolone Acetonide 15 Gm Oint...g. 1 Applic TOP [id number] Omeprazole 20 Mg Capsule.dr 20 Mg PO DAILY Clonidine Hcl 0.2 Mg Tablet 0.2 Mg PO BID Clomipramine Hcl 25 Mg Capsule 25 Mg PO DAILY Patient Instructions Patient Instuctions No driving No alcohol Follow-up with regard in [place] Follow-up with primary care office here in 7-10 days or sooner as needed KASSIDY MUKHERJEE MD May 11, 2017 09:53
[2017-05-11 09:55] VITALS: BP 163/111
[2017-05-11] MEDS ORDERED: traZODone 50 MG TABLET. PO SCH (21:00)
== END 2017-05-11 10:28 | disposition home or self-care (01) | DRG 897 ==
LOC: ER 22:53 → 1 SOUTH 05-10 02:13
PROVIDERS: ADMIT Family Medicine; ATTEND Family Medicine
DX: F10.231 Alcohol dependence with withdrawal delirium (principal); F31.10 Bipolar disorder, current episode manic without psychotic features, unspecified; Y90.8 Blood alcohol level of 240 mg/100 ml or more; I10 Essential (primary) hypertension; F41.9 Anxiety disorder, unspecified; F17.210 Nicotine dependence, cigarettes, uncomplicated; F42.9 Obsessive-compulsive disorder, unspecified; G47.00 Insomnia, unspecified; K21.9 Gastro-esophageal reflux disease without esophagitis; K70.30 Alcoholic cirrhosis of liver without ascites; K72.90 Hepatic failure, unspecified without coma; Z90.49 Acquired absence of other specified parts of digestive tract; Z88.2 Allergy status to sulfonamides; Z98.51 Tubal ligation status; Z91.5 Personal history of self-harm
CPT/HCPCS: 36415; 80048; 80053; 80307; 81001; 82247; 82248; 82977; 83690; 83735; 84450; 84460; 85027; 90732; 93005; 99406; G0480; J2060; G0479; J7030

== ENCOUNTER → 2017-09-09 | Day surgery (SDC) | payer MEDICARE, OTHER ==
[~2017-09-09] MED LIST changes: +CARV25TA PO; +CLOM25CA2 PO; +CLON-276 PO; +CLON0.5T3 PO; -IOHEXOL 300 MG/ML 75 ML VIAL. IV ONE; +IV RINGERS SOLUTION,LACTATED 1,000 ML IV ONE; +LIDOCAINE 2% PF Vial for OR 5 ML VIAL. ONE; +LORA0.5T96 PO; +METO25TA4 PO; +OMEP20CA9 PO; +PROPOFOL 0 ML IV ONE; +PROPOFOL 20 ML IV ONE; +TRAZ50TA15 PO; +TRIA15OI TOP
== END | disposition home or self-care (01) ==
LOC: SURG 08:47
PROVIDERS: ATTEND Internal Medicine Gastroenterology
DX: J02.9 Acute pharyngitis, unspecified (principal); I10 Essential (primary) hypertension; F41.9 Anxiety disorder, unspecified; Z98.890 Other specified postprocedural states; Z88.2 Allergy status to sulfonamides
CPT/HCPCS: 43239; J2704; J3010; J7120; J2001